=== PATIENT | female | born 1990 | race African-American/Black ===

== ENCOUNTER 2025-06-08 06:22 | Emergency (ER) | payer MEDICAID ==
[~2025-06-08] VITALS: Ht 152.4 cm; Wt 54.2 kg
[2025-06-08 06:28] VITALS: O2SAT 100
[2025-06-08] MEDS: HYDROCODONE/ACETAMINOPHEN 5/325MG TABLET PO ONE (06:55)
[2025-06-08 07:15] LABS: CREATININE 0.9 mg/dL (0.6-1.0); UREA NITROGEN BLOOD 10 mg/dL (9-23)
[2025-06-08 07:17] LABS: TROPONIN I HIGH SENSITIVITY < 4 ng/L (3.0-34)
[2025-06-08 07:29] LABS: BASOPHILS % 0.7 % (0.0-2.0); EOSINOPHILS % 1.2 % (0.0-5.0); HEMATOCRIT. 36.7 % (36.0-48.0); HEMOGLOBIN. 12.1 g/dL (12.0-16.0); LYMPHOCYTES % 22.0 % (20.0-50.0); MEAN PLATELET VOLUME 8.4 fl (7.4-10.4); MONOCYTES % 7.5 % (2.0-8.0); NEUTROPHILS % 68.6 % (40.0-76.0); PLATELET 223 x1000/uL (130-400); RED BLOOD CELL COUNT 4.00 mill/uL (4.2-5.4); RED CELL DISTRIBUTION WIDTH 12.8 % (11.6-14.6)
[2025-06-08] MEDS ORDERED: TOPUD PO (07:50)
[2025-06-08 08:01] VITALS: BP 100/77; PULSE 88; RESP 16; TEMP 36.7; O2SAT 100
== END 2025-06-08 08:10 | disposition home or self-care (01) ==
LOC: ER 06:22
DX: M25.512 Pain in left shoulder (principal); V19.9XXA Pedal cyclist (driver) (passenger) injured in unspecified traffic accident, initial encounter; Y93.55 Activity, bike riding; Y92.89 Other specified places as the place of occurrence of the external cause; Y99.8 Other external cause status
CPT/HCPCS: 36415; 71045; 73030; 80048; 81025; 84484; 85025; 93005; 99285; A4565